=== PATIENT | male | born 1970 | race Caucasian/White ===

== ENCOUNTER 2018-12-08 11:50 | Emergency (ER) | payer MEDICAID ==
--- NOTE | 2018-12-08 12:15 | Emergency Department Record ---
History of Present Illness - General Chief complaint: Pain Stated complaint: RIB INJURY Time Seen by Provider: 12/08/18 12:11 Source: Patient Mode of Arrival: Ambulatory Limitations: No limitations - History of Present Illness Initial comments: 48 yo male presents with lower left rib pain. He was working in his pole barn and reached over a rafter injuring the rib. He has some pain with breathing. No fever or sputum. No hemoptysis. No other injuries. The area is very focal and point tender. Onset/Timin -: Days(s) Location: Left History of Same: No Radiation: Distal Quality: Sharp Consistency: Constant Improves with: Nothing Worsens with: Other Associated Symptoms: Denies other symptoms - Related Data Home Medications Medication Instructions Recorded Confirmed Last Taken Atorvastatin Calcium 20 mg PO DAILY 12/08/18 12/08/18 Unknown Carvedilol [Coreg] 6.25 mg PO BID 12/08/18 12/08/18 Unknown Fluoxetine HCl [Prozac] 40 mg PO DAILY 12/08/18 12/08/18 Unknown Lisinopril 40 mg PO DAILY 12/08/18 12/08/18 Unknown Metformin HCl 1,000 mg PO BID 12/08/18 12/08/18 Unknown Trazodone HCl 50 mg PO QHS 12/08/18 12/08/18 Unknown Allergies Allergy/AdvReac Type Severity Reaction Status Date / Time acetaminophen [From Falls] AdvReac "causes me Verified 12/08/18 12:00 to black out" hydrocodone [From Falls] AdvReac "causes me Verified 12/08/18 12:00 to black out" Travel Screening - Travel/Exposure Within Last 30 Days Have you traveled within the last 30 days?: No Review of Systems Constitutional: Denies: Chills, Fever, Malaise, Weakness Eyes: Denies: Eye discharge ENT: Denies: Congestion, Throat pain Respiratory: Denies: Cough Cardiovascular: Reports: Chest pain (left ribs) Endocrine: Denies: Fatigue, Polydipsia, Polyuria Gastrointestinal: Denies: Abdominal pain, Diarrhea, Nausea, Vomiting Genitourinary: Denies: Dysuria, Frequency, Hematuria Musculoskeletal: Denies: Arthralgia, Back pain, Joint swelling, Myalgia, Neck pain Skin: Denies: Bruising, Change in color, Rash Neurological: Denies: Headache Psychiatric: Denies: Anxiety Hematological/Lymphatic: Denies: Easy bleeding, Easy bruising Past Medical History - SOCIAL HISTORY Smoking Status: Current every day smoker Alcohol Use: None Drug Use: None - RESPIRATORY Hx Respiratory Disorders: No - CARDIOVASCULAR Hx Cardio Disorders: Yes Hx Hypertension: Yes Comment:: high cholesterol - NEURO Hx Neuro Disorders: No - GI Hx GI Disorders: No - Hx Genitourinary Disorders: No - ENDOCRINE Hx Endocrine Disorders: Yes Hx Diabetes: Yes (Type 2) - MUSCULOSKELETAL Hx Musculoskeletal Disorders: No - PSYCH Hx Psych Problems: Yes Hx Anxiety: Yes Hx Depression: Yes - HEMATOLOGY/ONCOLOGY Hx Hematology/Oncology Disorders: No Family Medical History Any Significant Family History?: Yes Hx Cancer: Father, Mother Physical Exam - General General Appearance: Alert, Oriented x3, Cooperative, No acute distress Limitations: No limitations - Head Head exam: Atraumatic, Normal inspection Head exam detail: negative: Abrasion, Contusion - Eye Eye exam: Normal appearance, PERRL. negative: Conjunctival injection, Scleral icterus - ENT ENT exam: Normal exam Ear exam: Normal external inspection Nasal Exam: Normal inspection Mouth exam: Normal external inspection - Neck Neck exam: Normal inspection, Full ROM. negative: Tenderness - Respiratory Respiratory exam: Normal lung sounds bilaterally, Chest wall tenderness. negative: Accessory muscle use, Decreased breath sounds, Prolonged expiratory, Respiratory distress, Rhonchi, Stridor, Wheezes - Cardiovascular Cardiovascular Exam: Regular rate, Normal rhythm, Normal heart sounds Peripheral Pulses: 2+: Radial (R), Radial (L) - GI/Abdominal GI/Abdominal exam: Soft, Other (No LUQ tenderness). negative: Distended, Guarding, Tenderness - Rectal Rectal exam: Deferred - exam: Deferred - Extremities Extremities exam: Full ROM. negative: Normal inspection, Joint swelling, Pedal edema, Tenderness - Back Back exam: Reports: Normal inspection. Denies: CVA tenderness (R), CVA tenderness (L), Muscle spasm, Paraspinal tenderness, Tenderness, Vertebral t enderness - Neurological Neurological exam: Alert, Oriented X3 - Psychiatric Psychiatric exam: Normal affect, Normal mood. negative: Agitated, Anxious - Skin Skin exam: Dry, Intact, Normal color, Warm Course Vital Signs 12/08/18 11:55 Temperature 98.1 F Pulse Rate 81 Respiratory 20 Rate Blood Pressure 140/82 Pulse Ox 98 - Reevaluation(s) Reevaluation #1: 12/08/18 13:40 The XR of the ribs and chest were negative for acute process I recommend I/S at home with symptomatic, supportive treatment We discussed reasons to return and close follow up with the PCP. Disposition Disposition: Discharge Clinical Impression: Contusion of rib on left side Qualifiers: Encounter type: initial encounter Qualified Code(s): S20.212A - Contusion of left front wall of thorax, initial encounter Disposition: Home, Self-Care Condition: (1) Good Instructions: Rib Contusion (ED) Additional Instructions: Call your doctor for the next available follow up appointment Review this ER visit and the tests performed with your family doctor Return to the ER for a recheck if worse, any new concerns or questions Take the prescriptions provided as directed Forms: Patient Portal Access Time of Disposition: 13:41 Quality - Quality Measures Quality Measures: N/A - Blood Pressure Screening Does Patient Have Any of the Following: No Blood Pressure Classification: Hypertensive Reading Systolic Measurement: 139 Diastolic Measurement: 96 Screening for High Blood Pressure: < Pre-Hypertensive BP, F/U Documented > [[id number]] Pre-Hypertensive Follow-up Interventions: Referral to alternative/primary care provider.
[2018-12-08] MEDS ORDERED: KETOROLAC 30 MG/ML VIAL IM ONE (12:20)
--- NOTE | 2018-12-08 17:43 | RADIOLOGY REPORT ---
EXAM: RIBS, LEFT W/PA CHEST HISTORY: PAIN ANTERIOR LEFT LOWER RIB CAGE AFTER LEANING OVER A PIECE OF WOOD TWO DAYS AGO. TECHNIQUE: Single view of the chest and two additional views of the left ribs. COMPARISON: None. FINDINGS: CHEST: The lungs are clear. There is no sign of any effusion, contusion, or pneumothorax. The heart and mediastinum appear normal. LEFT RIBS: There is no evidence of any displaced fractures or any specific bone lesions. IMPRESSION: NO EVIDENCE OF ANY SPECIFIC ACUTE LEFT RIB OR CHEST PATHOLOGY. JOB NUMBER: [id number] [facility]
== END 2018-12-08 13:58 | disposition home or self-care (01) ==
LOC: ER 11:50
DX: S20.212A Contusion of left front wall of thorax, initial encounter (principal); X50.0XXA Overexertion from strenuous movement or load, initial encounter; I10 Essential (primary) hypertension; F17.210 Nicotine dependence, cigarettes, uncomplicated; E11.9 Type 2 diabetes mellitus without complications
CPT/HCPCS: 94010; 96372; 99284; J1885